=== PATIENT | female | born 1985 | race African-American/Black ===

== ENCOUNTER 2023-05-30 09:45 | Observation (INO) | payer OTHER ==
[2023-05-18 13:10] LABS: Hematocrit 38.7 % (34.9-44.5); Hemoglobin 12.8 g/dL (12.0-15.5); Mean Corpuscular HGB CONC 33.1 g/dL (32.0-36.0); Mean Corpuscular Hemoglobin 28.9 pg (27.0-33.0); Mean Corpuscular Volume 87.4 fl (81.6-98.3); Mean Platelet Volume 10.4 fl (7.4-10.4); Platelet Count 262 10x3/uL (150-450); RBC Distribution Width 14.3 % (11.5-14.5); Red Blood Cell (RBC) Count 4.43 10x6/uL (3.90-5.03); White Blood Cell (WBC) Count 5.4 10x3/uL (3.5-10.5)
[2023-05-18 13:22] LABS: BHCG - Serum Negative (NEGATIVE); Pregs Control Background? CLEAR/WHITE (CLR/WHITE); Pregs Control Bar Appear? YES (CONTROL BAR)
[2023-05-28 15:55] VITALS: BMI 29.0
[2023-05-30 10:30] LABS: Hematocrit 35.7 % (34.9-44.5); Hemoglobin 12.1 g/dL (12.0-15.5); Mean Corpuscular HGB CONC 33.9 g/dL (32.0-36.0); Mean Corpuscular Hemoglobin 29.5 pg (27.0-33.0); Mean Corpuscular Volume 87.1 fl (81.6-98.3); Mean Platelet Volume 9.9 fl (7.4-10.4); Platelet Count 238 10x3/uL (150-450); RBC Distribution Width 14.2 % (11.5-14.5); White Blood Cell (WBC) Count 4.5 10x3/uL (3.5-10.5)
[2023-05-30] MEDS ORDERED: Lidocaine 1% PF 5 ML VIAL ONE (10:51)
[2023-05-30] MEDS ORDERED: Ondansetron PF 4 MG/2 ML Vial ONE (10:51)
[2023-05-30] MEDS ORDERED: Dexamethasone 20 MG/5 ML VIAL ONE (10:51)
[2023-05-30] MEDS ORDERED: Rocuronium Bromide 10 MG/ML (10ML VIAL) ONE (10:51)
[2023-05-30] MEDS ORDERED: PROPOFOL 20 ML ONE (10:51)
[2023-05-30] MEDS ORDERED: Fentanyl 250 MCG/5 ML VIAL ONE (10:51)
[2023-05-30] MEDS ORDERED: Midazolam HCl 2 mg/2 ml Vial ONE ×3 (10:51→11:48)
[2023-05-30] MEDS ORDERED: Glycopyrrolate 0.2 MG/ML 5 ML SYRINGE ONE ×2 (10:52)
[2023-05-30] MEDS ORDERED: CEFAZOLIN 2 GM VIAL ONE (11:28)
[2023-05-30] MEDS ORDERED: Ketorolac Tromethamine 30 MG/ML VIAL ONE (11:28)
[2023-05-30] MEDS ORDERED: Dexmedetomidine 200 MCG/2 ML VIAL ONE (11:30)
[2023-05-30] MEDS ORDERED: Bupivacaine 0.25% HCL 30 ML VIAL ONE (11:57)
[2023-05-30] MEDS ORDERED: Morphine 4 MG/ML VIAL SLOW IVP PRN (15:19)
[2023-05-30] MEDS ORDERED: Bisacodyl 10 MG SUPP PR PRN (15:19)
[2023-05-30] MEDS ORDERED: Ondansetron PF 4 MG/2 ML Vial IVP PRN (15:19)
[2023-05-30] MEDS ORDERED: Simethicone Chewable 80 MG TAB PO PRN (15:19)
[2023-05-30] MEDS ORDERED: HYDROcodone/Acetaminophen 5/325 mg Tablet PO PRN (15:19)
[2023-05-30] MEDS ORDERED: Promethazine HCl 25 MG/ML VIAL IM PRN (15:19)
[2023-05-30] MEDS ORDERED: Acetaminophen 325 MG TAB PO PRN (15:19)
[2023-05-30] MEDS ORDERED: diphenhydrAMINE 25 MG CAP PO PRN (15:19)
[2023-05-30] MEDS: Lactated Ringer's 1,000 ML IV SCH (15:37)
[2023-05-30] MEDS: Sodium Chloride 0.9% 1,000 ML IV SCH ×3 (15:38→18:18)
[2023-05-30] MEDS: Ketorolac Tromethamine 30 MG/ML VIAL IVP SCH (18:07)
[2023-05-31] MEDS: Ketorolac Tromethamine 30 MG/ML VIAL IVP SCH ×4 (00:02→18:05)
[2023-05-31] MEDS: Lactated Ringer's 1,000 ML IV SCH ×4 (00:03→19:12)
[2023-05-31 04:43] LABS: Hemoglobin 8.8 g/dL (12.0-15.5); Mean Corpuscular HGB CONC 33.8 g/dL (32.0-36.0); Mean Corpuscular Hemoglobin 29.1 pg (27.0-33.0); Mean Corpuscular Volume 86.1 fl (81.6-98.3); Mean Platelet Volume 10.1 fl (7.4-10.4); Platelet Count 269 10x3/uL (150-450); RBC Distribution Width 13.9 % (11.5-14.5); Red Blood Cell (RBC) Count 3.02 10x6/uL (3.90-5.03); White Blood Cell (WBC) Count 10.8 10x3/uL (3.5-10.5)
[2023-05-31] MEDS: HYDROcodone/Acetaminophen 5/325 mg Tablet PO PRN (16:48)
[2023-05-31] MEDS: Sodium Chloride 0.9% 1,000 ML IV SCH ×2 (17:42→19:13)
[2023-06-01] MEDS: Ketorolac Tromethamine 30 MG/ML VIAL IVP SCH ×2 (00:53→06:23)
[2023-06-01 07:33] VITALS: BP 111/66; TEMP 97.3
[2023-06-01] MEDS: HYDROcodone/Acetaminophen 5/325 mg Tablet PO PRN ×2 (08:13→10:53)
== END 2023-06-01 11:00 | disposition home or self-care (01) ==
LOC: CSHSDC 09:45 → CSHPED 10:43 → INTOOBSV 10:43 → EDSTATUS 11:30
PROVIDERS: ADMIT Obstetrics & Gynecology; ATTEND Obstetrics & Gynecology
PROC: 0UT90ZZ Resection of Uterus, Open Approach (ICD-10-PCS; principal; 2023-05-30)
DX: D26.1 Other benign neoplasm of corpus uteri (principal); K66.0 Peritoneal adhesions (postprocedural) (postinfection); N92.0 Excessive and frequent menstruation with regular cycle; E89.0 Postprocedural hypothyroidism; F41.9 Anxiety disorder, unspecified; F84.0 Autistic disorder; Z88.0 Allergy status to penicillin; Z90.89 Acquired absence of other organs; Z79.890 Hormone replacement therapy; Z79.899 Other long term (current) drug therapy
CPT/HCPCS: 36415; 84702; 84703; 85027; 86850; 86900; 86901; 88307; 96374; 96376; G0378; J1100; J1885; J2250; J2405; J2704; J3010; J7120; S0020